=== PATIENT | male | born 1985 | race Caucasian/White ===

== ENCOUNTER 2020-08-22 10:39 | Outpatient (CLI) | payer OTHER, SELFPAY ==
[2020-08-22 11:37] LABS: Influenza Control Valid (Valid)
[2020-08-22 11:38] LABS: SARS-CoV-2 Ag Negative (Negative)
== END 2020-08-22 10:40 | disposition home or self-care (01) ==
LOC: CHSLAB 10:45
PROVIDERS: PCP Family Medicine; Visit Provider Family Medicine
DX: J00 Acute nasopharyngitis [common cold] (principal); Z20.828 Contact with and (suspected) exposure to other viral communicable diseases
CPT/HCPCS: 87426; 87804

== ENCOUNTER 2021-02-23 10:00 | Outpatient (CLI) | payer OTHER, SELFPAY ==
--- NOTE | ~2021-02-23 | XR_ITS ---
EXAMINATION: XR foot LT 2V DATE: 02/23/2021 10:43 INDICATION: Left foot pain TECHNIQUE: 2 views of left foot were obtained. COMPARISON: None. FINDINGS: Bone alignment is normal. No fracture. There is mild osteoarthritis of first metatarsophala ngeal joint and talonavicular joint. There are enthesophytes at the posterior and plantar aspects of calcaneal tuberosity. IMPRESSION: 1. Mild polyarticular osteoarthritis. Reviewed, dictated and finalized at location A.
--- NOTE | ~2021-02-23 | XR_ITS ---
EXAMINATION: XR ankle LT min 3V DATE: 02/23/2021 10:44 INDICATION: Left ankle pain. TECHNIQUE: 4 views of left ankle on 5 radiographs were obtained. COMPARISON: None. FINDINGS: Bone alignment is normal. No acute fracture. There is mild osteoarthritis of talonavicular joint. 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 The talar dome is intact. There are enthesophytes at the posterior and plantar aspects of calcaneal t uberosity. IMPRESSION: 1. Mild osteoarthritis of talonavicular joint. Reviewed, dictated and finalized at location A.
--- NOTE | ~2021-02-23 | XR_ITS ---
EXAMINATION: XR foot RT 2V DATE: 02/23/2021 10:43 INDICATION: Right foot pain. TECHNIQUE: 2 views of right foot were obtained. COMPARISON: None. FINDINGS: Bone alignment is normal. No fracture. There is mild osteoarthritis of first metatarsophala ngeal joint. There are enthesophytes at the posterior and plantar aspects of calcaneal tuberosity. IMPRESSION: 1. Mild osteoarthritis of first metatarsophalangeal joint. Reviewed, dictated and finalized at location A.
--- NOTE | ~2021-02-23 | XR_ITS ---
EXAMINATION: XR lumbar spine 2-3V EXAM DATE: 02/23/2021 10:44 INDICATION: Pain in bilateral feet/ankles L>R, pain lower back. No known recent injury. TECHNIQUE: Lumber spine frontal, lateral, lateral L5-S1 projections for interpretation. Comparison is made to prior examination from 04/28/2008. FINDINGS: Mild lumbar facet arthropathy. Mild disc disease at L3-4. The vertebral body and disc heig hts are otherwise well maintained. The vertebral bodies are aligned in the AP dimension. There are no bony erosions identified. There are no acute fractures identified. Sacrum, sacroiliac joints, sacral arcuate lines are intact. Paraspinal soft tissue is unremarkable. IMPRESSION: Mild lumbar spondylosis. Reviewed, dictated and finalized at location B. IMPRESSION: Mild lumbar spondylosis.
--- NOTE | ~2021-02-23 | XR_ITS ---
EXAMINATION: XR ankle RT min 3V DATE: 02/23/2021 10:43 INDICATION: Right ankle pain. TECHNIQUE: 4 views of right ankle were obtained. COMPARISON: None. FINDINGS: Bone alignment is normal. No fracture. Joint spaces are normal. There are enthesophytes at the posterior and plantar aspects of calcaneal tuberosity. IMPRESSION: 1. No fracture. Reviewed, dictated and finalized at location A. IMPRESSION: 1. No fracture.
== END 2021-02-23 10:01 | disposition home or self-care (01) ==
LOC: CHSLAB 10:03
PROVIDERS: PCP Family Medicine; Visit Provider Family Medicine
DX: M25.572 Pain in left ankle and joints of left foot (principal); M25.571 Pain in right ankle and joints of right foot; M79.672 Pain in left foot; M79.671 Pain in right foot; M54.16 Radiculopathy, lumbar region
CPT/HCPCS: 72100; 73610; 73620

== ENCOUNTER 2023-10-21 09:13 | Emergency (ER) | payer SELFPAY ==
[2023-10-21 09:13] VITALS: BP 131/72; PULSE 96; RESP 18; TEMP 36.3; O2SAT 98
--- NOTE | 2023-10-21 09:18 | ED.SKABFB ---
HPI - Skin/Abscess/Foreign Bdy General Chief complaint: Skin/Abscess/Foreign Body Stated complaint: abscess Time Seen by Provider: 10/21/23 09:16 Source: patient Mode of arrival: ambulatory Limitations: no limitations History of Present Illness HPI narrative: patient is a 37-year-old male with a left buttocks rash. This has been going on for the past few days. The area has gotten hard so he came for evaluation. It is tender. MD complaint: abscess/boil Onset (ago): day(s) (3) Tetanus up to date: unsure Location: buttocks ( left buttocks) Severity: moderate Severity scale (1-10): 5 Quality: aching and sharp Pain Consistency: constant Relieving factors: none Exacerbating factors: none Context: none Associated symptoms: denies other symptoms Treatments prior to arrival: none Related Data Home Medications Medication Instructions Recorded Confirmed No Home Medications 10/21/23 10/21/23 Allergies Allergy/AdvReac Type Severity Reaction Status Date / Time No Known Allergies Allergy Verified 10/21/23 09:19 Review of Systems Review of Systems: All systems reviewed & are unremarkable except as noted in HPI and below Constitutional: Constitutional: Reports no additional constitutional complaints Eyes: Eyes: Reports no additional eye complaints ENT: Reports system reviewed and no additional complaints, except as documented Cardiovascular: Cardiovascular: Reports no additional cardiovascular complaints Respiratory: Respiratory: Reports no additional respiratory complaints Gastrointestinal: Gastrointestinal: Reports no additional gastrointestinal complaints Genitourinary: Genitourinary: Reports no additional male genitourinary complaints Musculoskeletal: Musculoskeletal: Reports no additional musculoskeletal complaints Integumentary/Breasts: Skin/Breast: Reports system reviewed and no additional complaints, except as docu Neurologic: Reports system reviewed and no additional complaints, except as documented Psychiatric: Psychiatric: Reports no additional psychiatric complaints Endocrine: Endocrine: Reports no additional endocrine complaints Hematologic/Lymphatic: Hematologic/Lymphatic: Reports no additional hematologic/lymphatic complaints Allergic/Immunologic: Allergic/Immunologic: Reports no additional allergic/immunologic complaints Exam Const: General: healthy appearing Nutritional Appearance: well nourished Orientation/consciousness: patient oriented x3 HENMT: Head: normal to inspection Ears: external ears normal Face/Nose/Sinus: Normal external nose present Eyes: Conjunctivae: conjunctivae normal Pupils: Equal, round and reactive pupils present EOM: EOMs intact bilaterally Neck: Neck: normal visual inspection Chest: Chest palpation & inspection: normal inspection of the chest Resp: Effort & Inspection: normal respiratory effort and not labored Auscultation: clear to auscultation bilaterally and no crackles Cardio: Rate: regular rate Rhythm: regular rhythm Heart sounds: no murmurs GI: Inspection: non-distended GI Palp: Yes Soft to palpation, No Tenderness to palpation present (GI) and No Guarding due to palpation present (GI) Auscultation: normal bowel sounds : General: Yes bladder normal to palpation Back/Spine/Pelvis: Back: no CVA tenderness Skin: General skin exam: normal color Rashes: no rashes Wounds: wound noted and wounds noted Other: left buttocks moderate-sized abscess/boil with induration and tenderness and localized redness ( 6 x 11 cm) Neuro: General: patient oriented x3 Cranial nerves: Yes Nystagmus not present Speech: normal speech Extrem: General: normal to inspection Psych: Mental Status: mental status grossly normal Affect: normal affect Attitude: cooperative Course Vital Signs Vital signs: Vital Signs Temperature 36.3 C L 10/21/23 09:13 Pulse Rate 96 10/21/23 09:13 Respiratory Rate 18 10/21/23 09:13 Blood Pressure 131/72
[2023-10-21] MEDS: LIDO 1%/EPINEPHRINE 1:100,000 20 ML VIAL 10 ML INFILTRATE (09:42)
--- NOTE | 2023-10-21 09:56 | PC.NURSE ---
I&D SET UP AT BEDSIDE
[2023-10-21 10:50] VITALS: BP 128/70; PULSE 92; RESP 18; O2SAT 98
--- NOTE | 2023-10-24 13:14 | PC.NURSE ---
Addendum entered by Maite Montenegro RN 10/24/23 13:20: CULTURE REVIEWED BY DR TERRY Original Note: 10/24/23 CULTURE RESULTS OF LEFT BUTTOCKS WAS +MRSA PT IS ON APPROPRIATE ANTIBIOTIC NO NEW ORDERS RECEIVED
--- NOTE | 2023-10-29 10:13 | PC.NURSE ---
culture reviewed per dr briceño, new rx sent per dr franz
== END 2023-10-21 10:50 | disposition home or self-care (01) ==
PROVIDERS: Emergency Provider Emergency Medicine; PCP Family Medicine
DX: L02.31 Cutaneous abscess of buttock (principal)
CPT/HCPCS: 10061; 87070; 87147; 87205; 99282